=== PATIENT | female | born 1965 | race Caucasian/White ===

== ENCOUNTER 2018-11-07 10:57 | Emergency (ER) | payer BC ==
[2018-11-07] MEDS ORDERED: NS 0.9% 1000 ML** 1,000 ML IV ONE (11:11)
--- NOTE | 2018-11-07 11:16 | ED ---
Neurological HPI - HPI Summary HPI Summary: A 53 y/o F presents to ED for possible stroke onset this AM approx 1030. 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 She was able to ambulate at onset of symptoms. Sx are still present at bedside. Her says patient was not slurring her speech. Pert PMHx: panic attacks, migraines. - History of Current Complaint Chief Complaint: EDNeurologicalDeficit Stated Complaint: LEFT SIDED TINGLING/NUMBNESS AND HEART PALPATATION Hx Obtained From: Patient, Family/Tongue Carrier - Onset/Duration: Sudden Onset, Started minutes ago, Still Present Timing: Constant Current Severity: Moderate Seizure Severity: Moderate Number of Seizures: 0 Character: Lightheaded, Dizzy Associated Signs and Symptoms: Positive: Dizziness, Lightheadness, Palpitations. Negative: Impaired Speech - Allergy/Home Medications Allergies/Adverse Reactions: Allergies Allergy/AdvReac Type Severity Reaction Status Date / Time No Known Allergies Allergy Verified 11/07/18 12:11 Home Medications: Home Medications Ascorbic Acid TAB* [Vitamin C TAB*] 500 mg PO DAILY 11/07/18 [History Confirmed 11/07/18] Cholecalciferol (Vitamin D3) [D 1000] 3,000 unit PO DAILY 11/07/18 [History Confirmed 11/07/18] Cyanocobalamin TAB* [Vitamin B12 TAB*] 500 mcg PO DAILY 11/07/18 [History Confirmed 11/07/18] PMH/Surg Hx/FS Hx/Imm Hx Previously Healthy: No Neurological History: Reports: Hx Migraine Psychiatric History: Reports: Other Psychiatric Issues/Disorders - panic attacks - Cancer History Cancer Type, Location and Year: Breast CA Infectious Disease History: Denies: Traveled Outside the [place] in Last 30 Days - Family History Known Family History: Positive: Cardiac Disease Family History: Strokes - Social History Occupation: Employed Full-time Lives: With Family Review of Systems Positive: Other - pos: tremulous Positive: Palpitations Neurological: Other - pos: lightheadedness, dizzinyess, face and head "felt funny" Positive: Syncope - near-syncope. Negative: Slurred Speech All Other Systems Reviewed And Are Negative: Yes Physical Exam - Summary Physical Exam Summary: Appearance: The patient is well-nourished in no acute distress and in no acute pain. Skin: The skin is warm and dry and skin color reflects adequate perfusion. HEENT: The head is normocephalic and atraumatic. The pupils are equal and reactive. The conjunctivae are clear and without drainage. Nares are patent and without drainage. Mouth reveals moist mucous membranes and the throat is without erythema and exudate. The external ears are intact. The ear canals are patent and without drainage. The tympanic membranes are intact. Neck: the neck is supple with full range of motion and non-tender. There are no carotid bruits. There is no neck vein distension. Respiratory: Chest is non-tender. Lungs are clear to auscultation and breath sounds are symmetrical and equal. Cardiovascular: Heart is regular rate and rhythm. There is no murmur or rub auscultated. There is no peripheral edema and pulses are symmetrical and equal. Abdomen: The abdomen is soft and non-tender. There are normal bowel sounds heard in all four quadrants and there is no organomegaly palpated. Musculoskeletal: There is no back tenderness noted. Extremities are non-tender with full range of motion. There is good capillary refill. There is no peripheral edema or calf tenderness elicited. Neurological: Patient is alert and oriented to person, place and time. The patient has symmetrical motor strength in all four extremities. Cranial nerves are grossly intact. Deep tendon reflexes are symmetrical and equal in all four extremities. Decreased sensation in LUE. Psychiatric: The patient has an appropriate affect and does not exhibit any anxiety or depression. Triage Information Reviewed: Yes Vital Signs Reviewed: Yes - Reyno Coma Scale Best Eye Response: 4 - Spontaneous Best Motor Response: 6 - Obeys Commands Best Verbal Response: 5 - Oriented Coma Scale Total: 15 Diagnostics - Laboratory Result Diagrams: 11/07/18 11:37 11/07/18 11:37 Lab Statement: Any lab studies that have been ordered have been reviewed, and results considered in the medical decision making process. - Radiology CXR Radiology Interpretation Completed By: Radiologist Summary of Radiographic Findings: IMPRESSION: No radiographic evidence for acute cardiopulmonary abnormality on this portable chest x-ray. ED provider has reviewed this report. - CT Brain CT CT Interpretation Completed By: Radiologist Summary of CT Findings: IMPRESSION: Normal CT of the brain. Normal findings were reported over the telephone with Dr. Odom at 1120 hours on November 07, 2018. - EKG 1124 Cardiac Rate: NL - 77 bpm EKG Rhythm: Sinus Rhythm ST Segment: Normal Ectopy: None Summary of EKG Findings: No STEMI. NIH Scale - NIH Scale Level of Consciousness: Alert/Keenly Responsive Ask Patient the Month and His/Her Age: Both Correct Ask Pt to Open/Close Eyes and Monument Mason/Release Non-Paretic Hand: Both Correctly Best Gaze (Only Horizontal Eye Movement): Normal Visual Field Testing: No Visual Loss Facial Paresis-Pt to Smile & Close Eyes or Grimace Symmetry: Normal/Symmetrical Motor Function - Right Arm: No Drift-Holds 10 Seconds Motor Function - Left Arm: No Drift-Holds 10 Seconds Motor Function - Right Leg: No Drift-Holds 10 Seconds Motor Function - Left Leg: No Drift-Holds 10 Seconds Limb Ataxia-Must be out of Proportion to Weakness Present: Absent Sensory (Use Pinprick to Test Arms/Legs/Trunk/Face): Pinprick Less on Affected - decreased LUE sensation Best Language (Describe Picture, Name Items): No Aphasia Dysarthria (Read Several Words): Normal Extinction and Inattention: No Abnormality Total Score: 1 Re-Evaluation - Re-Evaluation 1 Re-Evaluation Time: 11:25 Change: Unchanged Comment: ED provider at bedside. 2 Re-Evaluation Time: 12:53 Change: Improved Comment: ED provider at bedside, discussing results with patient. Course/Dx - Course Course Of Treatment: Ms. Gilman had a sudden onset of funny feeling in the top of her head with some mild dizziness which she cannot characterize. She delivered about 15 minutes and it did not improve and she came to the emergency department with her . She felt a little bit better when she arrived but not much and a code fahad was called in the triage area prior to my seeing her. I evaluated her immediately after and found her to have an NIH stroke scale of 1 because she subjectively felt light touch less on her left upper extremity. She went immediately to the CT scanner which was read as negative by the radiologist. She was significantly improved when she returned and her on a structure was 0. She was at that point developing a dull left-sided headache that was not throbbing and was not accompanied by photophobia and nausea. She does have a history of migraine headaches. She is difficult to pin down as to what her migraine headaches are like but it sounds as though she often times does not have an actual headache but just an aura. This event today was different than her normal. I reviewed it with Dr. Delgado at [facility]. Who felt that this was most likely an atypical migraine however if it were a TIA her ABCD 2 score was low and she was not in danger. He recommended follow-up for potential MRI scan. - Diagnoses Provider Diagnoses: TIA (transient ischemic attack) During the Visit The Following Alert/Code Occurred: Code Herrera - 1102 Discharge - Sign-Out/Discharge Documenting (check all that apply): Patient Departure - D/C Patient Received Moderate/Deep Sedation with Procedure: No - Discharge Plan Condition: Stable Disposition: HOME Patient Education Materials: Transient Ischemic Attack (ED) Referrals: Rory Kauffman MD [Primary Care Provider] - 3 Days Additional Instructions: Take a baby aspirin daily. Please return to the ED if you experience new or worsening symptoms. Follow up with your primary care provider in 2-3 days. - Billing Disposition and Condition Condition: STABLE Disposition: Home - Attestation Statements Document Initiated by Scribe: Yes Documenting Scribe: Victoria Martines Provider For Whom Scribe is Documenting (Include Credential): Dr. Ricardo Odom MD Scribe Attestation: I, maldonado Lundbergibed for Dr. Ricardo Odom MD on 11/07/18 at 1807. Scribe Documentation Reviewed: Yes Provider Attestation: The documentation as recorded by the Victoria esqueda accurately reflects the service I personally performed and the decisions made by me, Dr. Ricardo Odom MD Status of Scribe Document: Viewed Consult Consult: 11:55: Dr. Angeles, neuro, at [facility] in [place] Feels patient's risk of stroke is very small. Recommends out-patient MRI by PCP.
[2018-11-07 11:44] LABS: ABS Basophils 0.1 10^3/ul (0-0.2); ABS Eosinophils 0.1 10^3/ul (0-0.6); ABS Monocytes 0.3 10^3/ul (0-0.8); ABS Neutrophils 1.6 10^3/ul (1.5-7.7); Hematocrit 41 % (35-47); Lymphocyte % 33.6 %; Mean Corpuscular HGB Conc 34 g/dL (31-36); Mean Corpuscular Hemoglobin 33 pg (27-31); Mean Corpuscular Volume 98 fL (80-97); Mean Platelet Volume 7.8 fL (7.4-10.4); Platelet Count 259 10^3/uL (150-450); Red Blood Count 4.24 10^6 /uL (3.70-4.87); Red Cell Distribution Width 13 % (10-15); White Blood Count 3.1 10^3/uL (3.5-10.8)
[2018-11-07 11:56] LABS: Activated Partial Thrombo Time 35.2 seconds (26.0-38.0); INR 0.94 (0.82-1.09)
[2018-11-07 12:01] LABS: Albumin 4.5 g/dL (3.2-5.2); Albumin/Globulin Ratio 1.6 (1-3); BUN/Creatinine Ratio 14.1 (8-20); Calcium 9.4 mg/dL (8.6-10.3); EGFR African American 85.3 (>60); EGFR Non-African American 70.5 (>60); Globulin 2.8 g/dL (2-4); HDL Cholesterol 82.6 mg/dL; Potassium 4.4 mmol/L (3.5-5.0); Total Bilirubin 0.7 mg/dL (0.2-1.0); Total Protein 7.3 g/dL (6.4-8.9)
[2018-11-07 13:43] VITALS: BP 99/60
[2018-11-07 13:50] LABS: Urine Appearance Clear; Urine Bilirubin Negative (Negative); Urine Blood Negative (Negative); Urine Color Straw; Urine Glucose Negative (Negative); Urine Ketones Negative (Negative); Urine Nitrite Negative (Negative); Urine Protein Negative (Negative); Urine Specific Gravity 1.003 (1.010-1.030); Urine Urobilinogen Negative (Negative)
== END 2018-11-07 13:44 | disposition home or self-care (01) ==
LOC: ED 10:57
DX: G45.9 Transient cerebral ischemic attack, unspecified (principal)
CPT/HCPCS: 36415; 70450; 71045; 80053; 80061; 81003; 83605; 84484; 85025; 85610; 85730; 86850; 86900; 86901; 93005; 96360; 96361; 99285